=== PATIENT | male | born 1965 | race Caucasian/White ===

== ENCOUNTER 2022-05-13 10:01 | Observation (INO) ==
[2022-05-13] MEDS ORDERED: ACETAMINOPHEN 1,000 MG/100 ML VIAL IV STA (11:06)
[2022-05-13] MEDS ORDERED: ONDANSETRON INJ 2 MG/ML 2 ML VIAL IV STA (11:06)
[2022-05-13] MEDS ORDERED: fentaNYL citrate PF 100 MCG/2 ML VIAL IV PRN (11:06)
[2022-05-13] MEDS ORDERED: SODIUM CHLORIDE 0.9% 1000ML 1,000 ML IV SCH ×2 (11:15→15:45)
--- NOTE | 2022-05-13 11:31 | Emergency Department Note ---
Impression & Plan Abdominal pain, Abnormal CT scan, Renal mass, GERD (gastroesophageal reflux disease) ED Provider Note ED Provider Note NAME: MARTIN OGDEN AGE:56 SEX: Male : 1965 ARRIVES VIA: Private vehicle INFORMANT: Patient ED PROVIDER(s): Adrianna Rose DO CHIEF COMPLAINT: Abdominal pain HPI: This is a 56-year-old male presents emergency room due to concern for right upper quadrant abdominal pain. Patient states, pain began 2 days ago. He states it seems worse at night and worse with taking a deep breath. No radiati on into the flank or back. Patient has had prior colectomy and so has chronically loose stools/diarrhea. No change in stools noted recently. No change in urine. No recent change in medications or diet. He denies fevers or chills. States he has had some mild nausea but no overt vomiting. No prior history of peptic ulcer disease. PAST MEDICAL HISTORY:See Below PAST SURGICAL HISTORY:See Below FAMILY HISTORY:See Below SOCIAL HISTORY:See Below HOME MEDICATIONS:See Below ALLERGIES:See Below VITALS:See Below PHYSICAL EXAMINATION: GENERAL: alert, well appearing, well nourished, no distress, non-toxic EYE EXAM: normal conjunctiva, PERRL and EOM's grossly intact OROPHARYNX: no exudate, no erythema, lips, buccal mucosa, and tongue normal and mucous membranes are moist NECK: supple, no nuchal rigidity, no adenopathy, non-tender LUNGS: Clear to auscultation. Normal chest wall mechanics, no w/r/r HEART: no murmurs, S1 normal and S2 normal ABDOMEN: abdomen soft, non-tender, normo-active bowel sounds, no masses, no rebound or guarding. BACK: Back is symmetrical on inspection and there is no deformity, no midline tenderness, no CVA tenderness. SKIN: no rashes, petechiae, orbruising UPPER EXTREMITIES: upper extremities are grossly normal. FROM, nml pulses b/l. LOWER EXTREMITIES: No pitting edema. FROM, nml pulses b/l. NEURO EXAM: Normal sensorium, cranial nerves II-XII grossly intact, normal speech, no facial droop,nogross weakness of arms, no gross weakness of legs. Gross sensation intact. No ataxia. Vital Signs: reviewed and remarkable Differential Diagnosis: Differential diagnoses includes but is not limited to gastritis, peptic ulcer disease, GERD, gallbladder disease, pancreatitis, small bowel obstruction, acute coronary syndrome, pericarditis, ischemic bowel, irritable bowel disease, irritable bowel syndrome, appendicitis, diverticulitis, malignancy, hernia, urinary tract infection, perforation, infectious. MEDICAL DECISION MAKING: This is a 56-year-old male who presents with 2 days of right upper quadrant pain. Labs drawn and sent, IV established, and after discussion at bedside patient was sent for CT imaging. Patient does take chronic Dominguez 2 inhibitors, but does take daily Pepcid and Protonix additionally. No prior EGD despite history of GERD. Patient was afebrile and vital signs stable. CT revealed gastric ulcer versus mass with possible contained perforation. Patient also noted to have a small solid mass on the right kidney suggestive of malignancy. Patient and updated on all results at bedside. Case discussed with on-call GI, Dr. Avila and given patient had not had anything to eat since 6 AM, they were able to plan for urgent endoscopy this afternoon. Case discussed with hospitalist for additional evaluation and management. Patient started on Protonix drip, COVID swab obtained, and EKG performed and interpreted by me at bedside. Consultation(s): 1320: Discussed with Dr. Avila. Patient last had coffee at 6 AM, nothing to eat since. Dr. Avila requests admit to medicine and he will plan on taking the patient for endoscopy this afternoon. ER Treatment Provided: See below Diagnostics Interpreted By Me: -ECG: Normal sinus at 79, normal axis, normal intervals, no acute ST/T wave changes -Cardiac Monitoring: An order was placed for continuous cardiac monitoring. The monitor shows a rate of 70 with normal sinus rhythm. -Laboratory studies: As stated above and show below. -Imaging studies: [] Triage Nursing Note Reviewed Prior/Outside Records Reviewed Procedures: [] Critical Care: Critical care of 43 min performed to assess and manage high likelihood of life- threatening abdominal pain with possible perforation, involving labs and imaging performed with assessment to evaluate abdominal pain diagnosis with frequent reassessment. This time includes bedside time, treatment discussions with patient/family/consultants, documentation time and excludes procedure time. Past Med/Surg History Medical History Immunodeficiency disorder (11/23/11) Mixed hyperlipidemia (11/23/11) Rheumatoid arthritis Surgical History History of herniorrhaphy History of partial colectomy S/P left rotator cuff repair Social History Smoking Status: Former smoker Tobacco Type: Cigarettes Hx Alcohol Use: Yes Alcohol Intake Frequency: Monthly or Less Hx Substance Use: No Preferred Language: Yoruba Communication Ability: Effective Cloud Systems Architect Required: No Beliefs That Will Affect Care: None marital status: Current Living Situation: Spouse current occupational status: retired Feels Safe at Home: Yes Assistive Devices: None Allergies Allergies Allergy/AdvReac Type Severity Reaction Status Date / Time meloxicam Allergy Unknown RASH Verified 05/13/22 14:34 Home Meds Home Medications Medication Instructions Recorded Confirmed Acetaminophen (Tylenol) 500 mg PO PRN #0 tabs 11/23/11 05/13/22 CELECOXIB (CeleBREX) 200 mg PO BID #0 caps 11/23/11 05/13/22 CYCLOSPORINE (OPHTH) (RESTASIS) 1 drp OPB BID ##0 11/23/11 05/13/22 FAMOTIDINE (PEPCID) 20 mg PO DAILY PRN #0 tabs 11/23/11 05/13/22 Fish Oil (OMEGA-3) 1 cap PO BID ##0 11/23/11 05/13/22 Hydrocodone/Acetaminophen 1 tab PO DAILY PRN #0 tabs 11/23/11 05/13/22 7.5MG/500MG (Lortab 7.5MG/500MG) MULTIPLE VITAMIN (MULTIVITAMIN) 1 tab PO DAILY #0 tabs 11/23/11 05/13/22 Methylprednisolone (Medrol) 4 mg PO PRN/UD #0 tabs 11/23/11 05/13/22 Previous Rx's Medication Instructions Recorded PANTOPRAZOLE SODIUM (PROTONIX) 40 mg PO BID #30 tabs 05/13/22 Results & Data (ED) Vital Signs Vital Signs - 24 hr 05/13/22 10:14 05/13/22 11:21 05/13/22 12:39 Temperature 36.8 C Temperature Source Temporal Artery Scan Pulse Rate 86 Pulse Rate [Finger] 85 67 Respiratory Rate 20 18 18 Respiratory Effort / Characteristics Non-Labored Non-Labored Spontaneous Non-Labored Spontaneous Respiratory Depth Normal Normal Normal Blood Pressure 125/75 Blood Pressure [Right Arm] 124/77 130/73 Blood Pressure Mean 91 Blood Pressure Mean [Right Arm] 92 92 Pulse Oximetry 98 95 98 Oxygen Delivery Method Room Air Room Air Room Air Sepsis Recent Fever Within 48 Hours No Sepsis New/Unexplained Change in Mental Status N/A Sepsis Action Taken by Nursing No Action Required Laboratory Data 05/13/22 10:58 05/13/22 10:58 Lab Results 05/13/22 05/13/22 05/13/22 Range/Units 10:58 10:58 11:45 WBC 2.80 L (4.8-10.8) K/ul RBC 4.58 L (4.70-6.10) M/uL Hgb 14.1 (14.0-18.0) g/dl Hct 39.4 L (42.0-52.0) % MCV 86.0 (80.0-100.0) fL MCH 30.8 (25.0-34.0) pg MCHC 35.8 (32.0-36.0) g/dL RDW Std Deviation 38.6 (36.4-46.3) fL RDW Coeff of Bret 12.3 (11.5-14.5) % Plt Count 194 (130-400) K/uL MPV 10.8 (9.4-12.4) fL Immature Gran % (Auto) 7.1 % Neut % (Auto) 40.3 % Lymph % (Auto) 37.9 % [place] % (Auto) 14.3 % Eos % (Auto) 0.0 % Baso % (Auto) 0.4 % Neut # (Auto) 1.13 L (1.40-6.50) K/uL Lymph # (Auto) 1.06 L (1.2-3.4) K/uL [place] # (Auto) 0.40 (0.11-0.59) K/uL Eos # (Auto) 0.00 (0-0.50) K/uL Baso # (Auto) 0.01 (0-0.2) K/uL Immature Gran # (Auto) 0.20 (0.01-0.20) K/uL PT 11.1 (9.0-12.0) Seconds INR 1.0 (0.9-1.1) Sodium 139 (136-145) mmol/L Potassium 4.1 (3.5-5.1) mmol/L Chloride 104 (98-107) mmol/L Carbon Dioxide 26 (21-32) mmol/L Anion Gap 9 (3-11) BUN 19 (6-23) mg/dl Creatinine 1.05 (0.6-1.4) mg/dl Est Cr Clr Drug Dosing 76.7 ml/min Est GFR ( Amer) 90.3 ml/min Est GFR (Non-Af Amer) 77.9 ml/min BUN/Creatinine Ratio 18.1 (10-20) Glucose 95 (70-99(Fasting)) mg/dl Calcium 9.5 (8.5-10.1) mg/dl Total Bilirubin 0.6 (0.2-1.0) mg/dl AST 16 (13-39) U/L ALT 11 (7-52) U/L Alkaline Phosphatase 82 (34-104) U/L Total Protein 7.4 (6.0-8.3) gm/dl Albumin 5.1 H (3.4-5.0) gm/dl Globulin 2.3 L (2.5-4.0) gm/dl Albumin/Globulin Ratio 2.2 H (0.9-2) Lipase 18 (11-82) U/L Urine Color Urine Appearance (Clear) Urine pH (4.5-7.5) Ur Specific [place] (1.000-1.030) Urine Protein (Negative) Urine Glucose (UA) (Negative) Urine Ketones (Negative) Urine Blood (Negative) Urine Nitrite (Negative) Urine Bilirubin (Negative) Urine Urobilinogen (Negative) Ur Leukocyte Esterase (Negative) 05/13/22 Range/Units 12:38 WBC (4.8-10.8) K/ul RBC (4.70-6.10) M/uL Hgb (14.0-18.0) g/dl Hct (42.0-52.0) % MCV (80.0-100.0) fL MCH (25.0-34.0) pg MCHC (32.0-36.0) g/dL RDW Std Deviation (36.4-46.3) fL RDW Coeff of Bret (11.5-14.5) % Plt Count (130-400) K/uL MPV (9.4-12.4) fL Immature Gran % (Auto) % Neut % (Auto) % Lymph % (Auto) % [place] % (Auto) % Eos % (Auto) % Baso % (Auto) % Neut # (Auto) (1.40-6.50) K/uL Lymph # (Auto) (1.2-3.4) K/uL [place] # (Auto) (0.11-0.59) K/uL Eos # (Auto) (0-0.50) K/uL Baso # (Auto) (0-0.2) K/uL Immature Gran # (Auto) (0.01-0.20) K/uL PT (9.0-12.0) Seconds INR (0.9-1.1) Sodium (136-145) mmol/L Potassium (3.5-5.1) mmol/L Chloride (98-107) mmol/L Carbon Dioxide (21-32) mmol/L Anion Gap (3-11) BUN (6-23) mg/dl Creatinine (0.6-1.4) mg/dl Est Cr Clr Drug Dosing ml/min Est GFR ( Amer) ml/min Est GFR (Non-Af Amer) ml/min BUN/Creatinine Ratio (10-20) Glucose (70-99(Fasting)) mg/dl Calcium (8.5-10.1) mg/dl Total Bilirubin (0.2-1.0) mg/dl AST (13-39) U/L ALT (7-52) U/L Alkaline Phosphatase (34-104) U/L Total Protein (6.0-8.3) gm/dl Albumin (3.4-5.0) gm/dl Globulin (2.5-4.0) gm/dl Albumin/Globulin Ratio (0.9-2) Lipase (11-82) U/L Urine Color Yellow Urine Appearance Clear (Clear) Urine pH 5.5 (4.5-7.5) Ur Specific [place] 1.023 (1.000-1.030) Urine Protein Negative (Negative) Urine Glucose (UA) Negative (Negative) Urine Ketones Negative (Negative) Urine Blood Negative (Negative) Urine Nitrite Negative (Negative) Urine Bilirubin Negative (Negative) Urine Urobilinogen Negative (Negative) Ur Leukocyte Esterase Negative (Negative) Administered Medications Discontinued Medications Fentanyl Citrate (Fentanyl Citrate 100 Mcg/2 Ml Vial) 50 mcg IV Q15M PRN PRN Reason: Pain Stop: 05/27/22 11:05 Last Admin: 05/13/22 11:16 Dose: 50 mcg Documented By: SAAD Glycopyrrolate (Glycopyrrolate 0.2 Mg/Ml Vial) Confirm Administered Dose 0.4 mg .ROUTE .STK-MED ONE Stop: 05/13/22 15:01 Last Admin: 05/13/22 16:45 Dose: Not Given Documented By: AV Sodium Chloride (Nss 1000ml) 1,000 mls @ 125 mls/hr IV .Q8H ISRA[place] Stop: 06/12/22 11:14 Last Infusion: 05/13/22 16:45 Dose: 0 mls/hr Documented By: Admin: 05/13/22 11:18 Dose: 125 mls/hr Documented By: SAAD Acetaminophen (Ofirmev) 1,000 mg in 100 mls @ 400 mls/hr IV NOW STA Stop: 05/13/22 11:20 Last Infusion: 05/13/22 11:34 Dose: 0 mls/hr Documented By: Admin: 05/13/22 11:16 Dose: 400 mls/hr Documented By: NMS Pantoprazole Sodium 80 mg/ (Dextrose) 120 mls @ 400 mls/hr IV NOW ONE Stop: 05/13/22 13:36 Last Infusion: 05/13/22 14:19 Dose: 0 mls/hr Documented By: Admin: 05/13/22 14:00 Dose: 400 mls/hr Documented By: NMS Sodium Chloride (Nss 1000ml) 1,000 mls @ 15 mls/hr IV .Q24H [place] Stop: 05/14/22 15:44 Last Admin: 05/13/22 16:53 Dose: Not Given Documented By: AV Ioversol (Optiray 350 100ml) 87 ml IV ONCE ONE Stop: 05/13/22 12:24 Last Admin: 05/13/22 12:14 Dose: 87 ml Documented By: CELI Lidocaine HCl (Lidocaine 2% Mpf Local 5 Ml Vial) Confirm Administered Dose 5 ml INFIL .STK-MED ONE Stop: 05/13/22 15:01 Last Admin: 05/13/22 16:45 Dose: Not Given Documented By: AV Morphine Sulfate (Morphine Sulfate 2 Mg/Ml [place]) 2 mg IV Q3H PRN PRN Reason: Pain 4-6 Stop: 05/27/22 16:40 Last Admin: 05/13/22 17:29 Dose: 2 mg Documented By: AV Ondansetron HCl (Ondansetron Inj 2 Mg/Ml 2 Ml Vial) 4 mg IV NOW STA Stop: 05/13/22 11:07 Last Admin: 05/13/22 11:16 Dose: 4 mg Documented By: NMS Ondansetron HCl (Ondansetron Inj 2 Mg/Ml 2 Ml Vial) Confirm Administered Dose 4 mg .ROUTE .STK-MED ONE Stop: 05/13/22 15:01 Last Admin: 05/13/22 16:44 Dose: Not Given Documented By: AV Propofol (Propofol Iv Emulsion 10 Mg/Ml 20 Ml Vial) Confirm Administered Dose 200 mg IV .STK-MED ONE Stop: 05/13/22 15:01 Last Admin: 05/13/22 16:44 Dose: Not Given Documented By: AV Propofol (Propofol Iv Emulsion 10 Mg/Ml 20 Ml Vial) Confirm Administered Dose 200 mg IV .STK-MED ONE Stop: 05/13/22 15:53 Last Admin: 05/13/22 16:45 Dose: Not Given Documented By: AV Imaging Data Radiologist's Impression: Abdomen/Pelvis CT 05/13/22 11:[address] WITH IV CONTRAST CT DOSE: 327.51 mGy.cm HISTORY: RUQ pain, nausea TECHNIQUE: Multiaxial CT images of the abdomen and pelvis were performed following the use of intravenous contrast. A dose lowering technique was utilized adhering to the principles of ALARA. COMPARISON STUDY: Abdomen and pelvis CT 08/05/2014. FINDINGS: A few punctate calcified granulomas within the lung bases. No pneumoperitoneum. No pneumatosis. No fractures identified. A stable 1.6 cm hypodense lesion within the periphery the right hepatic lobe. This is indeterminate but favors a hemangioma given the long-term stability. The spleen is mildly enlarged measuring 14 cm in length. This is similar to the prior study. Normal adrenal glands and pancreas. There is a 3.6 cm cyst within the upper pole of the left kidney. There are few additional bilateral renal hypodense lesions which are difficult to characterize due to their small size but also favors cysts. There is a new 1 cm lesion within the right kidney on image 166 which does not represent a simple cyst and could represent a solid renal mass. No hydronephrosis. No retroperitoneal lymphadenopathy. Mild calcified plaque within the normal caliber no pelvic lymphadenopathy. The bladder is unremarkable. The prostate gland is mildly enlarged. No evidence for a bowel obstruction. A few colonic diverticula. No evidence for acute diverticulitis. Postoperative changes consistent with prior right hemicolectomy. Diffuse gastric wall thickening. There is inflammatory change with soft tissue density/phlegmon within the gastrohepatic region abutting the lesser curvature of the stomach. This is best seen on images 81 through 83. Dominant extraluminal phlegmon/soft tissue density in image 83 measures 2.9 cm. This could be due to a contained perforation in the setting of a gastric ulcer and/or a gastric mass. Follow-up endoscopy recommended for further evaluation. Tiny fat-containing umbilical hernia. IMPRESSION: 1. Diffuse gastric wall thickening. There is inflammatory change with soft ti ssue density/phlegmon within the gastrohepatic region abutting the lesser curvature of the stomach as described above. This could be due to a contained perforation in the setting of a gastric ulcer and/or a gastric mass. Follow-up endoscopy recommended for further evaluation. 2. There is a new 1 cm lesion within the right kidney which is concerning for solid renal mass. Follow-up nonemergent dedicated renal MRI recommended to evaluate for possible renal cell carcinoma. ACT 112: Positive. There are findings on this exam that require communication between the performing entity and the patient following Patient Test Result Information Act ([place] Act 112) guidelines. Electronically signed by: Shan Sanchez M.D. 05/13/2022 12:34 PM Discharge Plan Visit Data Chief Complaint: Abdominal Pain Stated Complaint: GALLBLADDER ISSUE,ABDOMINAL PAIN ED Provider: Adrianna Rose Discharge Problem: Abdominal pain, Abnormal CT scan, Renal mass, GERD (gastroesophageal reflux disease) Patient Disposition: Admitted As Inpatient Discharge Instructions Interventions: ED Discharge Assessment Last Done: 05/13/22 14:59
[2022-05-13 11:52] LABS: Hematocrit (blood only) 39.4 % (42.0-52.0); Hemoglobin 14.1 g/dl (14.0-18.0); Mean Corpuscular Hemoglobin 30.8 pg (25.0-34.0); Mean Corpuscular Hgb Conc 35.8 g/dL (32.0-36.0); Mean Platelet Volume 10.8 fL (9.4-12.4); Platelet Count 194 K/uL (130-400); RDW Coefficient of Variation 12.3 % (11.5-14.5); RDW Standard Deviation 38.6 fL (36.4-46.3); Red Blood Count 4.58 M/uL (4.70-6.10)
[2022-05-13 11:56] LABS: Albumin Globulin Ratio 2.2 (0.9-2); Albumin Level 5.1 gm/dl (3.4-5.0); BUN Creatinine Ratio 18.1 (10-20); Bilirubin,Total 0.6 mg/dl (0.2-1.0); Calcium 9.5 mg/dl (8.5-10.1); Creatinine Clr Calc Pharmacy 76.7 ml/min; Est GFR (African American) 90.3 ml/min; Est GFR (Non-African American) 77.9 ml/min; Globulin 2.3 gm/dl (2.5-4.0); Potassium 4.1 mmol/L (3.5-5.1); Total Protein 7.4 gm/dl (6.0-8.3)
[2022-05-13] MEDS ORDERED: OPTIRAY 350 100ml IV ONE (12:23)
[2022-05-13 12:29] LABS: Basophils # (auto) 0.01 K/uL (0-0.2); Basophils % (auto) 0.4 %; Immature Granulocytes % (auto) 7.1 %; Lymphocytes # (auto) 1.06 K/uL (1.2-3.4); Lymphocytes % (auto) 37.9 %; Monocytes % (auto) 14.3 %; Neutrophils # (auto) 1.13 K/uL (1.40-6.50); Neutrophils % (auto) 40.3 %
--- NOTE | 2022-05-13 12:36 | CT Scan Report ---
ABDOMEN AND PELVIS CT WITH IV CONTRAST CT DOSE: 327.51 mGy.cm HISTORY: RUQ pain, nausea TECHNIQUE: Multiaxial CT images of the abdomen and pelvis were performed following the use of intrave nous contrast. A dose lowering technique was utilized adhering to the principles of ALARA. COMPARISON STUDY: Abdomen and pelvis CT 08/05/2014. FINDINGS: A few punctate calcified granulomas within the lung bases. No pneumoperitoneum. No pneumato sis. No fractures identified. A stable 1.6 cm hypodense lesion within the periphery the right hepatic lobe. This is indeterminate but favors a hemangioma given the long-term stability. The spleen is mil dly enlarged measuring 14 cm in length. This is similar to the prior study. Normal adrenal glands and pancreas. There is a 3.6 cm cyst within the upper pole of the left kidney. There are few additional bilateral renal hypodense lesions which are difficult to characterize due to their small size but als o favors cysts. There is a new 1 cm lesion within the right kidney on image 166 which does not repres ent a simple cyst and could represent a solid renal mass. No hydronephrosis. No retroperitoneal lymph adenopathy. Mild calcified plaque within the normal caliber no pelvic lymphadenopathy. The bladder is unremarkable. The prostate gland is mildly enlarged. No evidence for a bowel obstruction. A few colo gerald diverticula. No evidence for acute diverticulitis. Postoperative changes consistent with prior ri ght hemicolectomy. Diffuse gastric wall thickening. There is inflammatory change with soft tissue den sity/phlegmon within the gastrohepatic region abutting the lesser curvature of the stomach. This is b est seen on images 81 through 83. Dominant extraluminal phlegmon/soft tissue density in image 83 kenny ures 2.9 cm. This could be due to a contained perforation in the setting of a gastric ulcer and/or a gastric mass. Follow-up endoscopy recommended for further evaluation. Tiny fat-containing umbilical h ernia. IMPRESSION: 1. Diffuse gastric wall thickening. There is inflammatory change with soft tissue density/phlegmon wi thin the gastrohepatic region abutting the lesser curvature of the stomach as described above. This c ould be due to a contained perforation in the setting of a gastric ulcer and/or a gastric mass. Follo w-up endoscopy recommended for further evaluation. 2. There is a new 1 cm lesion within the right kidney which is concerning for solid renal mass. Follo w-up nonemergent dedicated renal MRI recommended to evaluate for possible renal cell carcinoma. ACT 112: Positive. There are findings on this exam that require communication between the performing entity and the patient following Patient Test Result Information Act ([place] Act 112) guidelines. Electronically signed by: Shan Sanchez M.D. 05/13/2022 12:34 PM
[2022-05-13 12:48] LABS: Prothrombin Time 11.1 Seconds (9.0-12.0)
[2022-05-13 13:00] LABS: Appearance Urine Clear (Clear); Bilirubin Urine Negative (Negative); Blood Urine Negative (Negative); Color Urine Yellow; Glucose Urine UA Negative (Negative); Ketones Urine Negative (Negative); Leukocyte Esterase Urine Negative (Negative); Nitrite Urine Negative (Negative); Protein Urine Negative (Negative); Specific Gravity Urine 1.023 (1.000-1.030); Urobilinogen Urine Negative (Negative); pH Urine 5.5 (4.5-7.5)
[2022-05-13] MEDS ORDERED: PANTOPRAZOLE BOLUS/DRIP 1 EACH IV STA (13:19)
[2022-05-13] MEDS ORDERED: PANTOprazole 80 MG in DEXTROSE 5% 100 ML IV ONE (13:19)
[2022-05-13] MEDS ORDERED: PANTOprazole 40 MG in DEXTROSE 5% 100 ML IV SCH (13:45)
--- NOTE | 2022-05-13 14:22 | History & Physical Report ---
Date of Service May 13, 2022 Assessment & Plan (1) Abdominal pain: Plan: 56 yo male with abdominal pain who has abnormal CT findings with gastric wall thickening c/f contained perforation d/t gastric ulcer and/or mass - Full admit to med/surg - Dr. Avila on consult for planned endoscopy today (05/13) - Maintain NPO status - Continue PPI drip as ordered by ED, but can likely be converted to Protonix 40mg IV BID vs PO tomorrow at rounding provider's discretion - Pain control will be implemented with IV APAP 1g q8h prn as first line, followed by Morphine 2mg IV q3h for mod pain, and 4mg IV q3h prn severe pain - If needs surgical intervention, would prefer to defer to Dr. Comer (pt's PCP's) recommendation - Continue IV antiemetics (2) Renal mass: Plan: Acute - Incidentally found on today's CT A/P - Will order dedicated renal MRI for further characterization given concern for solid renal mass - Plan to obtain this during this hospitalization to facilitate appropriate follow up - This can be completed tomorrow after he undergoes endoscopy (3) Immunodeficiency disorder: Plan: - In setting of chronic steroid + biologic use for RA - CBC reviewed, leukopenic, marginally neutropenic, will trend with repeat CBC in AM (4) GERD (gastroesophageal reflux disease): Plan: - Chronic/stable - On Protonix and Pepcid at home - Hold Pepcid, will be placed on PPI gtt (5) Rheumatoid arthritis: Plan: - Hold Celebrex, steroids, and Rinvoq (of which he takes on Fridays-so would be due today) Plan CMP also reviewed. No overt abnormalities appreciated. Follow up labs have been ordered for tomorrow morning. Above plan of care has been d/w Dr. Langley who has also seen and evaluated this patient and agrees with aforementioned. Further orders will be implemented as warranted. History of Present Illness Chief Complaint: Abdominal pain Primary Care Provider: DO Dr. 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 He reports pain worse at night and with taking in deep breaths. He chronically takes Celebrex 200mg TID and Medrol 4mg q3 days for his RA pain. He is also managed with a biologic (Rinvoq). He has had vague intermittent reflux symptoms in the past but has never had an EGD. He has had multiple colonoscopies in the past and has a prior h/o R hemicolectomy due to complex polyp that could not be removed via endoscopy. Due to his h/o colectomy, he has chronic loose stools. He admits to nausea associated with his symptoms but no vomiting. Work up in the ER today included a CT a/p with IV contrast which demonstrated diffuse gastric wall thickening with inflammatory change with soft tissue/phlegmon within the gastrohepatic region abutting the lesser curvature of the stomach. Findings could be due to contained perforation in the setting of a gastric ulcer and/or gastric mass for which endoscopy is recommende d for further evaluation. Incidentally, patient was found to also have a 1cm lesion within the right kidney which is concerning for solid renal mass. Patient was medicated with a dose of IV Zofran and IV APAP. He has been started on an IV Protonix drip and Dr. Avila from gastroenterology was promptly notified regarding CT findings. Patient is for endoscopy this afternoon. His last oral intake was ~6am. Hospitalists have been contacted for admission for further evaluation and treatment. Allergies Allergy/AdvReac Type Severity Reaction Status Date / Time meloxicam Allergy Unknown RASH Verified 05/13/22 14:34 Home Medications Medication Instructions Recorded Confirmed Type Acetaminophen (Tylenol) 500 mg PO PRN #0 tabs 11/23/11 05/13/22 History CELECOXIB (CeleBREX) 200 mg PO BID #0 caps 11/23/11 05/13/22 History CYCLOSPORINE (OPHTH) (RESTASIS) 1 drp OPB BID ##0 11/23/11 05/13/22 History FAMOTIDINE (PEPCID) 20 mg PO DAILY PRN #0 tabs 11/23/11 05/13/22 History Fish Oil (OMEGA-3) 1 cap PO BID ##0 11/23/11 05/13/22 History Hydrocodone/Acetaminophen 1 tab PO DAILY PRN #0 tabs 11/23/11 05/13/22 History 7.5MG/500MG (Lortab 7.5MG/500MG) MULTIPLE VITAMIN (MULTIVITAMIN) 1 tab PO DAILY #0 tabs 11/23/11 05/13/22 History Methylprednisolone (Medrol) 4 mg PO PRN/UD #0 tabs 11/23/11 05/13/22 History PANTOPRAZOLE SODIUM (PROTONIX) 40 mg PO DAILY #30 tabs 11/23/11 05/13/22 History Past Med/Surg History Medical History (Updated 05/13/22 @ 14:12 by Tiffanie Woods PA-C) Immunodeficiency disorder (11/23/11) Mixed hyperlipidemia (11/23/11) Rheumatoid arthritis Surgical History (Updated 05/13/22 @ 14:12 by Tiffanie Woods PA-C) History of herniorrhaphy History of partial colectomy S/P left rotator cuff repair Social History (Updated 05/13/22 @ 14:13 by Tiffanie Woods PA-C) Smoking Status: Former smoker Tobacco Type: Cigarettes Hx Alcohol Use: Yes Alcohol Intake Frequency: Monthly or Less Hx Substance Use: No marital status: current occupational status: retired Feels Safe at Home: Yes Physical Exam Physical Exam: GENERAL: 56 yo Well-developed, well-nourished WM. Pleasant, A&Ox4. NAD. LUNGS: Clear to auscultation bilaterally. CARDIOVASCULAR: Regular rate and rhythm. No M/G/R. ABDOMEN: Soft, TTP in RUQ. No palpable masses. Bowel sounds normoactive x 4 quad. Results & Data Results & Data Vital Signs (Past 12 Hours) Vital Signs Temp Pulse Pulse Resp BP BP Pulse Ox 05/13/22 12:39 67 18 130/73 98 05/13/22 11:21 85 18 124/77 95 05/13/22 10:14 36.8 C 86 20 125/75 98 O2 Del Method 05/13/22 12:39 Room Air 05/13/22 11:21 Room Air 05/13/22 10:14 Room Air Laboratory Results 05/13/22 10:58 05/13/22 10:58 Diagnostic Findings Abdomen/Pelvis CT 05/13/22 11:[address] WITH IV CONTRAST CT DOSE: 327.51 mGy.cm HISTORY: RUQ pain, nausea TECHNIQUE: Multiaxial CT images of the abdomen and pelvis were performed following the use of intravenous contrast. A dose lowering technique was utilized adhering to the principles of ALARA. COMPARISON STUDY: Abdomen and pelvis CT 08/05/2014. FINDINGS: A few punctate calcified granulomas within the lung bases. No pneumoperitoneum. No pneumatosis. No fractures identified. A stable 1.6 cm h ypodense lesion within the periphery the right hepatic lobe. This is indeterminate but favors a hemangioma given the long-term stability. The spleen is mildly enlarged measuring 14 cm in length. This is similar to the prior study. Normal adrenal glands and pancreas. There is a 3.6 cm cyst within the upper pole of the left kidney. There are few additional bilateral renal hypodense lesions which are difficult to characterize due to their small size but also favors cysts. There is a new 1 cm lesion within the right kidney on image 166 which does not represent a simple cyst and could represent a solid renal mass. No hydronephrosis. No retroperitoneal lymphadenopathy. Mild calcified plaque within the normal caliber no pelvic lymphadenopathy. The bladder is unremarkable. The prostate gland is mildly enlarged. No evidence for a bowel obstruction. A few colonic diverticula. No evidence for acute diverticulitis. Postoperative changes consistent with prior right hemicolectomy. Diffuse gastric wall thickening. There is inflammatory change with soft tissue density/phlegmon within the gastrohepatic region abutting the lesser curvature of the stomach. This is best seen on images 81 through 83. Dominant extraluminal phlegmon/soft tissue density in image 83 measures 2.9 cm. This could be due to a contained perforation in the setting of a gastric ulcer and/or a gastric mass. Follow-up endoscopy recommended for further evaluation. Tiny fat-containing umbilical hernia. IMPRESSION: 1. Diffuse gastric wall thickening. There is inflammatory change with soft tissue density/phlegmon within the gastrohepatic region abutting the lesser curvature of the stomach as described above. This could be due to a contained perforation in the setting of a gastric ulcer and/or a gastric mass. Follow-up endoscopy recommended for further evaluation. 2. There is a new 1 cm lesion within the right kidney which is concerning for solid renal mass. Follow-up nonemergent dedicated renal MRI recommended to evaluate for possible renal cell carcinoma. ACT 112: Positive. There are findings on this exam that require communication between the performing entity and the patient following Patient Test Result Information Act ([place] Act 112) guidelines. Electronically signed by: Shan Sanchez M.D. 05/13/2022 12:34 PM Code Status & VTE Plan Code Status Full Supervising Physician Co-Signing Physician Notes Patient seen and examined, chart reviewed, case discussed with Tiffanie Woods PA-C and I agree with the assessment and plan as above except as otherwise noted Labs and images reviewed 56-year-old male who presented for right upper quadrant pain of 2 days worsened with inspiration. Has a history of partial colectomy for complicated removal of a polyp, rheumatoid arthritis on Rinvoq, methylprednisolone every 3 days and as needed, and Celebrex up to 3 times a day. No melena/hematochezia. Patient has radiation of his pain to his right shoulder and was initially concerned about gallbladder involvement. Has not had endoscopy before. On review of labs Leukopenia with absolute neutrophil count 1.13, leukocyte count 1.06. Hemoglobin normal at 14.1, platelets 194. Abdominal CT shows diffuse gastric wall thickening and inflammatory change? Contained perforation in the setting of gastric ulcer versus gastric mass. GI consulted, anticipate endoscopy with Dr. Avila today. NPO. Hemoglobin stable, no active bleeding. Patient is with epigastric discomfort. CT also noted 1 cm right kidney lesion. Patient continues to have epigastric pain, heart rate is regular, breathing is unlabored at bedside. Patient is taken to endoscopy, with surgical consultation pending if he is found to have a perforated ulcer. Patient prefers to have surgical recommendation made by his PCP Dr. Quintana to which a message has been sent. No evidence of free air on initial exam, patient does not have fever/chills. Patient has no medication allergies. Agree with recommendations of management as above PG Care Time/CCT Total # of Minutes Spent Total Time Spent with Patient: Total time spent is greater than 50% in coordination of care (as documented) at patient's floor/unit and/or counseling patient: Coding Level of Care Code 75521 INT INP/OBS CARE 3/75MIN Diagnoses Abdominal pain R10.9 Renal mass N28.89 Immunodeficiency disorder D84.9 GERD (gastroesophageal reflux disease) K21.9 Rheumatoid arthritis M06.9
--- NOTE | 2022-05-13 14:54 | Anesthesiology Consultation ---
Date of Service May 13, 2022 Assessment & Plan Chart Review Chart Review: Acceptable Risk for Surgery Consults Requested none History Surgery Operation Date: 05/13/22 16:00 Proposed Procedures p Esophagogastroduodenoscopy Dr. Austin Avila MD Height/Weight Height: 5 ft 9 in Weight: 74.3 kg Allergies Allergy/AdvReac Type Severity Reaction Status Date / Time meloxicam Allergy Unknown RASH Verified 05/13/22 14:34 Medications Home Medications Medication Instructions Recorded Confirmed Last Taken Acetaminophen (Tylenol) 500 mg PO PRN #0 tabs 11/23/11 05/13/22 Unknown CELECOXIB (CeleBREX) 200 mg PO BID #0 caps 11/23/11 05/13/22 05/12/22 CYCLOSPORINE (OPHTH) (RESTASIS) 1 drp OPB BID ##0 11/23/11 05/13/22 05/12/22 FAMOTIDINE (PEPCID) 20 mg PO DAILY PRN #0 tabs 11/23/11 05/13/22 05/12/22 Fish Oil (OMEGA-3) 1 cap PO BID ##0 11/23/11 05/13/22 05/12/22 Hydrocodone/Acetaminophen 1 tab PO DAILY PRN #0 tabs 11/23/11 05/13/22 05/12/22 7.5MG/500MG (Lortab 7.5MG/500MG) MULTIPLE VITAMIN (MULTIVITAMIN) 1 tab PO DAILY #0 tabs 11/23/11 05/13/22 05/12/22 Methylprednisolone (Medrol) 4 mg PO PRN/UD #0 tabs 11/23/11 05/13/22 Unknown PANTOPRAZOLE SODIUM (PROTONIX) 40 mg PO DAILY #30 tabs 11/23/11 05/13/22 05/13/22 06:00 Active Medications Generic Name Dose Route Start Last Admin Trade Name Freq PRN Reason Stop Dose Admin Fentanyl Citrate 50 mcg 05/13/22 11:06 05/13/22 11:16 Fentanyl Citrate 100 Mcg/2 Ml Vial IV 05/27/22 11:05 50 mcg Q15M PRN Administration Pain Sodium Chloride 1,000 mls @ 125 mls/hr 05/13/22 11:15 05/13/22 11:18 Nss 1000ml IV 06/12/22 11:14 125 mls/hr .Q8H [place] Administration NPO Date Last Intake of Fluids: 05/13/22 Time Last Intake of Fluids: 06:00 Date Last Intake of Solids: 05/12/22 Time Last Intake of Solids: 21:00 Past Medical History Medical History (Updated 05/13/22 @ 14:12 by Tiffanie Woods PA-C) Immunodeficiency disorder (11/23/11) Mixed hyperlipidemia (11/23/11) Rheumatoid arthritis Past Surgical History Surgical History (Updated 05/13/22 @ 14:12 by Tiffanie Woods PA-C) History of herniorrhaphy History of partial colectomy S/P left rotator cuff repair Social History Smoking Status: Former smoker Hx Alcohol Use: Yes Hx Substance Use: No Physical Exam Vital Signs Last Vital Signs Temp 36.7 C 05/13/22 14:38 Pulse 79 05/13/22 14:38 Resp 16 05/13/22 14:38 BP 127/79 05/13/22 14:38 Pulse Ox 99 05/13/22 14:38 O2 Del Method Room Air 05/13/22 14:38 Testing Laboratory Results 05/13/22 10:58 05/13/22 10:58 PT 11.1 Seconds (9.0-12.0) 05/13/22 11:45 INR 1.0 (0.9-1.1) 05/13/22 11:45 Urine Color Yellow 05/13/22 12:38 Urine Appearance Clear (Clear) 05/13/22 12:38 Urine pH 5.5 (4.5-7.5) 05/13/22 12:38 Ur Specific [place] 1.023 (1.000-1.030) 05/13/22 12:38 Urine Protein Negative (Negative) 05/13/22 12:38 Urine Glucose (UA) Negative (Negative) 05/13/22 12:38 Urine Ketones Negative (Negative) 05/13/22 12:38 Urine Nitrite Negative (Negative) 05/13/22 12:38 Ur Leukocyte Esterase Negative (Negative) 05/13/22 12:38
[2022-05-13] MEDS ORDERED: PROPOFOL IV EMULSION 10 MG/ML 20 ML VIAL IV ONE ×2 (15:00→15:52)
[2022-05-13] MEDS ORDERED: LIDOCAINE 2% MPF LOCAL 5 ML VIAL INFIL ONE (15:00)
[2022-05-13] MEDS ORDERED: ONDANSETRON INJ 2 MG/ML 2 ML VIAL ONE (15:00)
[2022-05-13] MEDS ORDERED: GLYCOPYRROLATE 0.2 MG/ML VIAL ONE (15:00)
--- NOTE | 2022-05-13 15:41 | Gastrointestinal Consultation ---
Date of Consultation May 13, 2022 Assessment & Plan (1) Abdominal pain: (2) Abnormal CT scan: Plan ddx includes PUD vs malignancy vs. severe gastritis, proceed with EGD to further evaluate risks/benefits and procedure discussed with patient, who agrees to proceed supportive care, protonix drip, admit to medicine, NPO Thank you for allowing me to participate in the care of this patient. History of Present Illness History of Present Illness 56 yo male with hx colectomy here with RUQ pains x 2 days. Pain is sharp worse with inspiration. On celebrex chronically for years as well as protonix and pep kurtis daily. Has hx leukemia as well. On admission VSS afebrile. However imaging shows questionable area in stomach concerning for possible contained perforation or neoplasm and endoscopy was advised. CBC, CMP reviewed. Allergies Allergy/AdvReac Type Severity Reaction Status Date / Time meloxicam Allergy Unknown RASH Verified 05/13/22 14:34 Home Medications Medication Instructions Recorded Confirmed Type Acetaminophen (Tylenol) 500 mg PO PRN #0 tabs 11/23/11 05/13/22 History CELECOXIB (CeleBREX) 200 mg PO BID #0 caps 11/23/11 05/13/22 History CYCLOSPORINE (OPHTH) (RESTASIS) 1 drp OPB BID ##0 11/23/11 05/13/22 History FAMOTIDINE (PEPCID) 20 mg PO DAILY PRN #0 tabs 11/23/11 05/13/22 History Fish Oil (OMEGA-3) 1 cap PO BID ##0 11/23/11 05/13/22 History Hydrocodone/Acetaminophen 1 tab PO DAILY PRN #0 tabs 11/23/11 05/13/22 History 7.5MG/500MG (Lortab 7.5MG/500MG) MULTIPLE VITAMIN (MULTIVITAMIN) 1 tab PO DAILY #0 tabs 11/23/11 05/13/22 History Methylprednisolone (Medrol) 4 mg PO PRN/UD #0 tabs 11/23/11 05/13/22 History PANTOPRAZOLE SODIUM (PROTONIX) 40 mg PO DAILY #30 tabs 11/23/11 05/13/22 History Patient History Medical History Immunodeficiency disorder (11/23/11) Mixed hyperlipidemia (11/23/11) Rheumatoid arthritis Surgical History History of herniorrhaphy History of partial colectomy S/P left rotator cuff repair Social History Smoking Status: Former smoker Tobacco Type: Cigarettes Hx Alcohol Use: Yes Alcohol Intake Frequency: Monthly or Less Hx Substance Use: No marital status: current occupational status: retired Feels Safe at Home: Yes Review of Systems Constitutional: no fever, no chills and no weight loss Eyes: as per Subjective / HPI Ear, Nose, Mouth, Throat: as per Subjective / HPI Respiratory: no dyspnea and no dyspnea on exertion Cardiovascular: no chest pain and no palpitations Gastrointestinal: as per Subjective / HPI Musculoskeletal: no joint pain and no swelling Integumentary: no rash and no lesions Neurologic: no numbness and no paresthesia Psychiatric: no depression and no anxiety Endocrine: no fatigue Hematologic / Lymphatic: no easy bleeding and no easy bruising Physical Exam Constitutional: WD/WN, vitals as above Eyes: EOM intact bilaterally Neck: normal visual inspection Respiratory: normal respiratory effort, lungs clear to auscultation Cardiovascular: RRR, no murmur, no edema Gastrointestinal (Abdomen): Inspection/Auscultation: abdomen normal to inspection; abdomen not distended Percussion/Palpation: abdomen soft; abdomen nontender and no hepatosplenomegaly Musculoskeletal: Extremities: no cyanosis Gait: normal gait Skin: no rashes, warm and dry Neurologic: moves all extremities Psychiatric: A+Ox3, euthymic affect Results & Data Vital Signs (Past 12 Hours) Vital Signs Temp Pulse Pulse Resp BP BP Pulse Ox 05/13/22 14:38 36.7 C 79 16 127/79 99 05/13/22 12:39 67 18 130/73 98 05/13/22 11:21 85 18 124/77 95 05/13/22 10:14 36.8 C 86 20 125/75 98 O2 Del Method 05/13/22 14:38 Room Air 05/13/22 12:39 Room Air 05/13/22 11:21 Room Air 05/13/22 10:14 Room Air PG Care Time/CCT Total # of Minutes Spent Total Time Spent with Patient: Total time spent is greater than 50% in coordination of care (as documented) at patient's floor/unit and/or counseling patient: Coding Level of Care Code 74393 IN/OBS CONSULT LVL 4,60M Diagnoses Abdominal pain R10.[address] scan R93.89
--- NOTE | 2022-05-13 16:00 | GI REPORT ---
Patient Name: Daryl Fraire Procedure Date: 05/13/2022 2:30 PM Date of : 1965 Admit Type: Emergency Department Age: 56 Gender: Male Attending MD: Stuart Avila MD, Procedure: Upper GI endoscopy Providers: Stuart Avila MD Referring MD: Adrianna Rose Do Indications: Abdominal pain in the right upper quadrant Medicines: Monitored Anesthesia Care Complications: No immediate complications. Estimated blood loss: None. Estimated Blood Loss: Estimated blood loss: none. Procedure: Pre-Anesthesia Assessment: - Prior Anticoagulants: The patient has taken no anticoagulant or antiplatelet agents except for NSAID medication. - ASA Grade Assessment: II - A patient with mild systemic disease. After obtaining informed consent, the endoscope was passed under direct vision. Throughout the procedure, the patient's blood pressure, pulse, and oxygen saturations were monitored continuously. The Endoscope was introduced through the mouth, and advanced to the second part of duodenum. The upper GI endoscopy was accomplished without difficulty. The patient tolerated the procedure well. Findings: The examined esophagus was normal. Scattered mild inflammation characterized by erythema was found in the stomach. Biopsies were taken with a cold forceps for Helicobacter pylori testing. Estimated blood loss: none. A single large sessile polyp with no bleeding was found in the second portion of the duodenum. Biopsies were taken with a cold forceps for histology. Estimated blood loss: none. Impression: - Normal esophagus. - Gastritis. Biopsied. - A single duodenal polyp. Biopsied. Recommendation: - Return patient to [facility] for ongoing care. - Clear liquid diet today then advance as tolerated tomorrow. - Await pathology results. -protonix 40 mg daily Stuart Avila MD 05/13/2022 4:00:09 PM This report has been signed electronically. Note Initiated On: 05/13/2022 2:30 PM Number of Addenda: 0 I attest to the content of the Intraoperative Record and orders documented therein, exceptions below {[id number]}
--- NOTE | 2022-05-13 16:12 | Anesthesiology Progress Note ---
Date of Service May 13, 2022 Anesthesia Post Procedure Vital Signs Vital Signs: Temp Pulse Pulse Resp BP BP Pulse Ox 05/13/22 15:56 69 16 97/60 L 99 05/13/22 14:38 36.7 C 79 16 127/79 99 05/13/22 12:39 67 18 130/73 98 05/13/22 11:21 85 18 124/77 95 05/13/22 10:14 36.8 C 86 20 125/75 98 O2 Del Method 05/13/22 15:56 Room Air 05/13/22 14:38 Room Air 05/13/22 12:39 Room Air 05/13/22 11:21 Room Air 05/13/22 10:14 Room Air Pain Intensity Right Upper Abdomen: Pain Intensity: 8 Transfer of Care Handoff Completed per policy Notes Mental Status: alert / awake / arousable and participated in evaluation Patient Amnestic to Procedure: Yes Nausea / Vomiting: adequately controlled Pain: adequately controlled Airway Patency, RR, SpO2: stable & adequate BP & HR: stable & adequate Hydration State: stable & adequate Anesthetic Complications: no major complications apparent
[2022-05-13] MEDS ORDERED: MoRPHine SULFATE 4 MG/ML 1 ML CARP\\VIAL IV PRN (16:41)
[2022-05-13] MEDS ORDERED: POLYETHYLENE (MIRALAX) 17 GM PACK PO PRN (16:41)
[2022-05-13] MEDS ORDERED: MAGNESIUM HYDROXIDE SUSP 30 ML UDC PO PRN (16:41)
[2022-05-13] MEDS ORDERED: ACETAMINOPHEN 1,000 MG/100 ML VIAL IV PRN (16:41)
[2022-05-13] MEDS ORDERED: ALUMINUM/MAGNESIUM SUSP 30 ML UDC PO PRN (16:41)
[2022-05-13] MEDS ORDERED: ONDANSETRON INJ 2 MG/ML 2 ML VIAL IV PRN (16:41)
[2022-05-13] MEDS ORDERED: MoRPHine SULFATE 2 MG/ML CARP IV PRN (16:41)
--- NOTE | 2022-05-13 17:23 | Communication Note ---
Date of Service: May 13, 2022 By CMS guidelines, a determination that the admission or continued stay is not medically necessary has been made by a member of the UR committee and a physi joann for this hospital stay, therefore a Code 44 will be completed and the Inpatient admission will be changed to outpatient.
--- NOTE | 2022-05-13 17:35 | Discharge Summary ---
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 He reports pain worse at night and with taking in deep breaths. He chronically takes Celebrex 200mg TID and Medrol 4mg q3 days for his RA pain. He is also managed with a biologic (Rinvoq). He has had vague intermittent reflux symptoms in the past but has never had an EGD. He has had multiple colonoscopies in the past and has a prior h/o R hemicolectomy due to complex polyp that could not be removed via endoscopy. Due to his h/o colectomy, he has chronic loose stools. He admits to nausea associated with his symptoms but no vomiting. Work up in the ER today included a CT a/p with IV contrast which demonstrated diffuse gastric wall thickening with inflammatory change with soft tissue/phlegmon within the gastrohepatic region abutting the lesser curvature of the stomach. Findings could be due to contained perforation in the setting of a gastric ulcer and/or gastric mass for which endoscopy is recommended for further evaluation. Incidentally, patient was found to also have a 1cm lesion within the right kidney which is concerning for solid renal mass. Patient was medicated with a dose of IV Zofran and IV APAP. He has been started on an IV Protonix drip and Dr. Avila from gastroenterology was promptly notified regarding CT findings. Patient is for endoscopy this afternoon. His last oral intake was ~6am. Hospitalists have been contacted for admission for further evaluation and treatment. Principal Diagnosis 1. RUQ Abd pain s/p EGD with findings of duodenal polyp - suspect malignant 2. Incidental finding of R renal lesion Discharge Exam GENERAL: 56 yo Well-developed, well-nourished WM. Pleasant, A&Ox4. NAD. LUNGS: Clear to auscultation bilaterally. CARDIOVASCULAR: Regular rate and rhythm. No M/G/R. ABDOMEN: Soft, TTP in RUQ. No palpable masses. Bowel sounds normoactive x 4 quad. Discharge Data Allergies Allergy/AdvReac Type Severity Reaction Status Date / Time meloxicam Allergy Unknown RASH Verified 05/13/22 14:34 Consultations 05/13/22 13:20 Consult Gastroenterology Stat 05/13/22 13:34 ED Decision to Admit Stat Procedures Performed Operation Date: 05/13/22 16:00 Actual Procedures p EGD Biopsy Cytology - Stuart Avila MD Ordered Studies Abdomen/Pelvis CT 05/13/22 11:[address] WITH IV CONTRAST CT DOSE: 327.51 mGy.cm HISTORY: RUQ pain, nausea TECHNIQUE: Multiaxial CT images of the abdomen and pelvis were performed following the use of intravenous contrast. A dose lowering technique was utilized adhering to the principles of ALARA. COMPARISON STUDY: Abdomen and pelvis CT 08/05/2014. FINDINGS: A few punctate calcified granulomas within the lung bases. No pneumoperitoneum. No pneumatosis. No fractures identified. A stable 1.6 cm hypodense lesion within the periphery the right hepatic lobe. This is indeterminate but favors a hemangioma given the long-term stability. The spleen is mildly enlarged measuring 14 cm in length. This is similar to the prior study. Normal adrenal glands and pancreas. There is a 3.6 cm cyst within the upper pole of the left kidney. There are few additional bilateral renal hypodense lesions which are difficult to characterize due to their small size but also favors cysts. There is a new 1 cm lesion within the right kidney on image 166 which does not represent a simple cyst and could represent a solid renal mass. No hydronephrosis. No retroperitoneal lymphadenopathy. Mild calcified plaque within the normal caliber no pelvic lymphadenopathy. The bladder is unremarkable. The prostate gland is mildly enlarged. No evidence for a bowel obstruction. A few colonic diverticula. No evidence for acute diverticulitis. Postoperative changes consistent with prior right hemicolectomy. Diffuse gastric wall thickening. There is inflammatory change with soft tissue density/phlegmon within the gastrohepatic region abutting the lesser curvature of the stomach. This is best seen on images 81 through 83. Dominant extraluminal phlegmon/soft tissue density in image 83 measures 2.9 cm. This could be due to a contained perforation in the setting of a gastric ulcer and/or a gastric mass. Follow-up endoscopy recommended for further evaluation. Tiny fat-containing umbilical hernia. IMPRESSION: 1. Diffuse gastric wall thickening. There is inflammatory change with soft tissue density/phlegmon within the gastrohepatic region abutting the lesser curvature of the stomach as described above. This could be due to a contained perforation in the setting of a gastric ulcer and/or a gastric mass. Follow-up endoscopy recommended for further evaluation. 2. There is a new 1 cm lesion within the right kidney which is concerning for solid renal mass. Follow-up nonemergent dedicated renal MRI recommended to evaluate for possible renal cell carcinoma. ACT 112: Positive. There are findings on this exam that require communication between the performing entity and the patient following Patient Test Result Information Act ([place] Act 112) guidelines. Electronically signed by: Shan Sanchez M.D. 05/13/2022 12:34 PM Hospital Course (1) Abdominal pain: 56 yo male with abdominal pain who has abnormal CT findings with gastric wall thickening c/f contained perforation d/t gastric ulcer and/or mass - Full admit to med/surg - Dr. Avila on consult for planned endoscopy today (05/13) - Maintain NPO status - Continue PPI drip as ordered by ED, but can likely be converted to Protonix 40mg IV BID vs PO tomorrow at rounding provider's discretion - Pain control ordered with IV APAP 1g q8h prn as first line, followed by Morphine 2mg IV q3h for mod pain, and 4mg IV q3h prn severe pain - He is s/p EGD with findings of duodenal polyp s/p biopsy which will be sent for pathology, although suspected to be malignant - He can consume clear liquid diet today and advance to regular diet tomorrow - Patient has requested discharge and f/u with pcp to arrange for referrals as warranted - Would advise cautious use of NSAIDs and to discontinue use of breakthrough methylprednisolone - Will increase his Protonix to 40mg BID upon discharge (2) Renal mass: Acute - Incidentally found on today's CT A/P - Will order dedicated renal MRI for further characterization given concern for solid renal mass - Patient has elected to be discharge and have this arranged as an outpatient, PCP is aware and will order (3) Immunodeficiency disorder: - In setting of chronic steroid + biologic use for RA (4) GERD (gastroesophageal reflux disease): - Chronic/stable - On Protonix at home and Pepcid - Continue Pepcid and increase Protonix to 40mg BID (5) Rheumatoid arthritis: - Can resume biologic - Again, cautious use of NSAIDs and would avoid breakthrough Methylprednisolone q3 days Plan Patient has requested to be discharged back home and follow up closely with his PCP for necessary referrals and MRI for his incidental renal lesion finding. I have directly connected with his PCP (Dr. Comer) who will see him Monday to expedite these arrangements. He is medically stable for discharge. Plan d/w Dr. Langley who has also seen and evaluated this patient and agrees with aforementioned. Total Time Total Time Spent Total Time Spent (In Minutes): <30 minutes Discharge Plan Discharge Items Patient Disposition: Home - Self-Care Reason For Visit: ABDOMINAL PAIN Discharge Diagnosis: polyp in duodenum incidental finding of R kidney lesion Activity: Resume your previous activity Non-emergency contact: Primary Care Provider Call non-emergency contact if: you have any medication questions and your symptoms worsen Follow-up/Referrals: Wally Comer, [Primary Care Provider] - Diet: Clear liquid Addtl Attending Provider Instructions: You underwent an endoscopy today that revealed a large polyp in the duodenum. This has been biopsied and you will be contacted with results. - Please consume a clear liquid diet today and then can advance to regular diet as tolerated tomorrow - Contact Dr. Comer's office on Monday, he will see you in follow up and assist in making any necessary referrals as well as scheduling the MRI of your R kidney to further characterize the lesion that was visualized on today's CT. - If any needs should arise between now and Monday, please contact Dr. Comer directly. - Would recommend avoiding the NSAIDs and the breakthrough Methylprednisolone. - Continue biologic. - Will increase Protonix to twice a day. New Rx has been sent to pharmacy. - In the event of a medical emergency, call 911 or return to ER immediately. Pending Studies at Discharge: Yes Studies:: pathology from biopsy of duodenal polyp Stand-Alone Forms: My [facility], Smoking Cessation Medications and DC Order Prescriptions: Continued Acetaminophen (Tylenol) 500 MG tablet 500 mg PO PRN Qty: 0 CELECOXIB (CeleBREX) 200 MG capsule 200 mg PO BID Qty: 0 CYCLOSPORINE (OPHTH) (RESTASIS) 0.05 % EMU 1 drp OPB BID Qty: 0 FAMOTIDINE (PEPCID) 20 MG tablet 20 mg PO DAILY PRN Qty: 0 Fish Oil (OMEGA-3) oil 1 cap PO BID Qty: 0 Hydrocodone/Acetaminophen 7.5MG/500MG (Lortab 7.5MG/500MG) tablet 1 tab PO DAILY PRN Qty: 0 Patient Comments: PRN PAIN MULTIPLE VITAMIN (MULTIVITAMIN) 1 TAB tablet 1 tab PO DAILY Qty: 0 Methylprednisolone (Medrol) 4 MG tablet 4 mg PO PRN/UD Qty: 0 Changed PANTOPRAZOLE SODIUM (PROTONIX) 40 MG tablet 40 mg PO BID Qty: 30 0RF Discharge Orders: Discharge Order (Routine); Ordered 05/13/22 Ordered By: Tiffanie Woods Admission Data Admit Date/Time: 05/13/22 13:41 Attending Provider: Eliud Langley Admit Provider: Eliud Langley Primary Care Provider: Wally Comer Other Providers: Stuart Avila ; Eliud Langley Other Interventions: Discharge Summary Assessment (RN) Last Done: 05/13/22 17:56 Supervising Physician Co-Signing Physician Notes Patient seen and examined, chart reviewed, case discussed with Tiffanie Woods PA-C and I agree with the assessment and plan as above except as otherwise noted Labs and images reviewed See same-day H&P for admitting exam. Patient was admitted for concern of contained perforation versus malignancy and epigastric pain. Following EGD patient was found to have scattered mild inflammation of the stomach, and a single large sessile polyp with no bleeding in the second portion of the du odenum. No ulceration/perforation was appreciated. Following procedure given that no active bleed or ulceration was found patient requested discharge home rather than continued observation. He was hemodynamically stable. No concerns requiring ongoing monitoring from GI standpoint on review, PPI increased to twice daily and patient was discharged home as noted above. We will have outpatient follow-up, and will follow for pathology results of biopsy. Patient was aware he has a new renal mass which will require follow-up MRI. Patient will prefer outpatient follow-up with outpatient MRI which is reasonable. Patient's PCP was contacted by [facility] prior to discharge for facilitated follow-up appointment within 1 week. Coding Level of Care Code 71580 IN/OBS DISCH 30 MIN/LESS Diagnoses Abdominal pain R10.9 Renal mass N28.89 Immunodeficiency disorder D84.9 GERD (gastroesophageal reflux disease) K21.9 Rheumatoid arthritis M06.9
--- NOTE | 2022-05-13 17:43 | Communication Note ---
Date of Service: May 13, 2022 By CMS guidelines, a determination that the admission or continued stay is not medically necessary has been made by a member of the UR committee and a phys ician for this hospital stay, therefore a Code 44 will be completed and the Inpatient admission will be changed to outpatient.
--- NOTE | 2022-05-14 02:36 | Electrocardiogram Report ---
Test Reason : Blood Pressure : / mmHG Vent. Rate : 079 BPM Atrial Rate : 079 BPM P-R Int : 152 ms QRS Dur : 092 ms QT Int : 378 ms P-R-T Axes : 058 031 046 degrees QTc Int : 433 ms Normal sinus rhythm Normal ECG When compared with ECG of 07-APR-2021 08:21, No significant change was found Confirmed by Isacc Negro ([id number]) on 05/14/2022 2:36:20 AM Referred By: REFERRED SELF Confirmed By:Isacc Negro
== END 2022-05-13 18:27 | disposition home or self-care (01) ==
LOC: ED 10:01 → 3N 13:41 → INTOOBSV 13:41 → 3N 14:59

== ENCOUNTER 2022-12-27 11:00 | Observation (INO) ==
--- NOTE | 2022-12-23 09:32 | Anesthesiology Consultation ---
Date of Service December 23, 2022 Assessment & Plan (1) Encounter for pre-operative examination: Plan - I called patient and he states that today's WBC and neutrophil count are stable for him, notes neutrophils are in fact improved. He denies currently receiving chemotherapy. Case discussed in detail with Dr. Verduzco who advised patient is acceptable to proceed with planned surgery and does not require additional testing or evaluation prior to surgery from his standpoint. - Per assistant therapy aide on 12/23/2022: No known infectious disease contacts, current infectious disease symptoms in past 10 days or COVID positive test result in the past 90 days. Chart Review Chart Review: Acceptable Risk for Surgery and Patient NOT seen in Pre Admission Testing History Surgery Operation Date: 12/27/22 12:30 Proposed Procedures p Laparoscopic Cholecystectomy, Liver Biopsy, Surgery as Needed - Amrik Sanford DO Height/Weight Height: 5 ft 9 in Weight: 72.575 kg Allergies Allergy/AdvReac Type Severity Reaction Status Date / Time meloxicam Allergy Unknown RASH Verified 12/23/22 08:32 Medications Home Medications Medication Instructions Recorded Confirmed Last Taken celecoxib 100 mg capsule (Celebrex) 100 mg PO DAILY 10/26/22 12/23/22 Unknown famotidine 40 mg tablet (Pepcid) 40 mg PO DAILY 10/26/22 12/23/22 Unknown hydrocodone 7.5 mg-acetaminophen 1 tab PO BID PRN Pain 10/26/22 12/23/22 Unknown 325 mg tablet methylprednisolone 4 mg tablet 4 mg PO .COMPLEX 10/26/22 12/23/22 Unknown (Medrol) pantoprazole 40 mg tablet,delayed 40 mg PO DAILY 10/26/22 12/23/22 Unknown release (Protonix) sumatriptan succinate 4 mg/0.5 mL 4 mg subcut ONCE PRN migraine 10/26/22 12/23/22 Unknown subcutaneous pen injector (Imitrex headache STATdose Pen) upadacitinib 15 mg tablet,extended 15 mg PO DAILY 10/26/22 12/23/22 Unknown release 24 hr (Rinvoq) ondansetron HCl 4 mg tablet 4 mg PO Q6H PRN Nausea 12/23/22 12/23/22 Unknown Past Medical History Medical History (Updated 12/23/22 @ 09:29 by Isela Morley PA-C) CVID (common variable immunodeficiency) Dr. Flores [facility] Feltys syndrome Gallbladder sludge Gastric mass GERD (gastroesophageal reflux disease) Incisional hernia Myelodysplastic syndrome Neutropenia patient states he typically runs 2 or just below 2 WBC Renal cell carcinoma follows with PSH, pt reports upcoming additional testing/biopsy with this upcoming procedure Rheumatoid arthritis Past Family History Family History Grandmother Lung cancer Grandfather Lung cancer Father Diabetes Past Surgical History Surgical History H/O colonoscopy H/O hand surgery History of esophagogastroduodenoscopy (EGD) History of herniorrhaphy History of partial colectomy S/P left rotator cuff repair Social History Smoking Status: Former smoker Smoking cigarettes per day: 20 pack/yr history Do You Dip or Chew Tobacco: No Hx Alcohol Use: No alcohol intake frequency: holidays/special occasions only Hx Substance Use: No substance use type: does not use Lab Results Anesthesia Preop Results Results Anesthesia Widget: WBC 1.98 K/ul (4.8-10.8) L 12/23/22 Hgb 11.8 g/dl (14.0-18.0) L 12/23/22 Hct 35.4 % (42.0-52.0) L 12/23/22 Plt 283 K/uL (130-400) 12/23/22 Na 136 mmol/L (136-145) 12/23/22 K 4.3 mmol/L (3.5-5.1) 12/23/22 Cl 98 mmol/L (98-107) 12/23/22 CO2 29 mmol/L (21-32) 12/23/22 BUN 17 mg/dl (6-23) 12/23/22 Creat 1.02 mg/dl (0.6-1.4) 12/23/22 Glucose Level 142 mg/dl (70-99(Fasting)) H 12/23/22 Testing Electrocardiogram Date: 05/13/22 NSR, rate 79 bpm Chest X-Ray Date: 05/16/22 No acute process Other Testing Abdomen CT 12/01/22 1. Interval development of new rim-enhancing nodules in the right subdiaphragmatic region. Findings are concerning for metastatic disease this patient with likely primary renal neoplasm. 2. Soft tissue nodule in the region of the lesser curvature of the stomach appears slightly enlarged from prior exam. Although this may represent chronic findings of contained perforated ulcer, findings are concerning for possible malignancy. 3. Interval stability of right lower pole renal lesion again felt to likely represent neoplasm such as renal cell carcinoma. 4. Ill-defined low density in the right liver previously demonstrated imaging characteristics of a hemangioma. Abdomen pelvis 08/02/22 1. Unchanged enhancing 1 cm lesion of the inferior pole of the right kidney suggestive of renal cell carcinoma. 2. No lymphadenopathy or evidence of metastatic disease. 3. Unchanged irregular soft tissue thickening with inflammatory stranding involving the lesser curvature of the stomach and adjacent gastrohepatic tissues which is again suggestive of a diverticulum, exophytic lesion or contained perforation. Correlation with endoscopy is suggested if not already obtained. 4. Splenomegaly. Chest CT 08/02/22 1. Paramediastinal consolidation in the left upper lobe is likely on an infectious/inflammatory basis. Clinical correlation will be required. 2. There is a 9 mm subsolid nodule in the left upper lobe which is new from 03/23/2015. This may also be inflammatory. A three-month follow-up chest CT is recommended to document resolution of these findings. 3. Additional subcentimeter pulmonary nodules are unchanged from 2016 and of low suspicion. 4. Additional findings as above Abdomen MRI 06/09/22 1. Confirmation of a 1 cm enhancing lesion within the lower pole of the right kidney. This is consistent with a renal cell carcinoma until proven otherwise. Urology consultation recommended. 2. Gastric wall thickening and the adjacent inflammatory change at the gastrohepatic ligament appears to have slightly improved. 3 month abdomen and pelvis CT follow-up recommended to ensure complete resolution. 3. Mild splenomegaly. 4. Stable hepatic hemangioma measuring 1.7 cm.
[~2022-12-27 11:00] MED LIST: HYDROCORTISONE SOD SUCCINATE 100 MG/2 ML VIAL IV SCH; LR 15ML/HR IV SCH; ceFAZolin 2000MG 2,000 MG/15 ML SYR IV SCH
[2022-12-27] MEDS ORDERED: ONDANSETRON INJ 2 MG/ML 2 ML VIAL IV PRN ×2 (11:30→16:47)
[2022-12-27] MEDS ORDERED: ePHEDrine sulfate 50 MG/ML AMP IV PRN (11:30)
[2022-12-27] MEDS ORDERED: ATROPINE SULFATE 0.1 MG/ML 10ML SYR IV PRN (11:30)
[2022-12-27] MEDS ORDERED: MIDAZOLAM HCL 1 MG/ML 2ML VIAL ONE (12:42)
[2022-12-27] MEDS ORDERED: fentaNYL citrate PF 100 MCG/2 ML VIAL ONE (12:43)
[2022-12-27] MEDS ORDERED: ROCURONIUM BROMIDE 10 MG/ML 5 ML VIAL IV ONE ×2 (12:44)
[2022-12-27] MEDS ORDERED: PROPOFOL IV EMULSION 10 MG/ML 20 ML VIAL IV ONE (12:45)
[2022-12-27] MEDS ORDERED: ONDANSETRON INJ 2 MG/ML 2 ML VIAL ONE (12:46)
[2022-12-27] MEDS ORDERED: LIDOCAINE 2% 2 ML VIAL/AMP(20MG/ML) INFIL ONE (12:46)
[2022-12-27] MEDS ORDERED: DEXAMETHASONE SOD INJ 4 MG/ML VIAL ONE (12:46)
--- NOTE | 2022-12-27 12:47 | History & Physical Report ---
Date of Service December 27, 2022 Assessment & Plan (1) Abdominal pain: Plan: Unclear exactly what is going on. I reviewed him his imaging with Dr. Dexter. There is certainly some liver lesions as well as some upper abdominal abnormalities. With his symptoms I think the best chance of trying to help him to get a definitive diagnosis would be to go ahead and proceed with a laparoscopic cholecystectomy and biopsy any abnormalities of the liver and upper abdomen. I may or may not perform an intraoperative endoscopy as well. We discussed potential risks which include bleeding, infection, bile duct leak or bile duct injury, injury to other organs such as bowel liver vasculature etc., DVT, PE, [place], CVA etc. Following our discussion I answered all of his questions. We will plan on repairing his periumbilical incisional hernia at the same time. We will proceed today with laparoscopic cholecystectomy umbilical/incisional hernia repair, possible liver biopsy possible intraoperative EGD. He agrees with the plan. (2) Abnormal CT scan: (3) Incisional hernia: (4) Gallbladder sludge: (5) Gastric mass: (6) Renal mass: (7) Myelodysplastic syndrome: History of Present Illness Primary Care Provider: Wally Comer DO Patient since I seen him last in the office the injury has had progression of his symptoms. He now gets right upper quadrant postprandial pain after he eats at least 3-4 times a week. He has lost about 10 pounds. He is also had some repeat imaging which continues to show some abnormalities in the upper abdomen near the stomach under the diaphragm as well as in the right lobe of the liver. Allergies Allergy/AdvReac Type Severity Reaction Status Date / Time meloxicam Allergy Unknown RASH Verified 12/27/22 11:21 Home Medications Medication Instructions Recorded Confirmed Type celecoxib 100 mg capsule (Celebrex) 100 mg PO DAILY 10/26/22 12/27/22 History famotidine 40 mg tablet (Pepcid) 40 mg PO DAILY 10/26/22 12/27/22 History hydrocodone 7.5 mg-acetaminophen 1 tab PO BID PRN Pain 10/26/22 12/27/22 History 325 mg tablet methylprednisolone 4 mg tablet 4 mg PO .COMPLEX 10/26/22 12/27/22 History (Medrol) pantoprazole 40 mg tablet,delayed 40 mg PO DAILY 10/26/22 12/27/22 History release (Protonix) sumatriptan succinate 4 mg/0.5 mL 4 mg subcut ONCE PRN migraine 10/26/22 12/27/22 History subcutaneous pen injector (Imitrex headache STATdose Pen) upadacitinib 15 mg tablet,extended 15 mg PO DAILY 10/26/22 12/27/22 History release 24 hr (Rinvoq) ondansetron HCl 4 mg tablet 4 mg PO Q6H PRN Nausea 12/23/22 12/27/22 History loperamide 2 mg capsule 2 mg PO Q6H PRN Diarrhea 12/27/22 12/27/22 History Past Med/Surg History Medical History CVID (common variable immunodeficiency) Dr. Sandra Wills Feltys syndrome Gallbladder sludge Gastric mass GERD (gastroesophageal reflux disease) Incisional hernia Myelodysplastic syndrome Neutropenia patient states he typically runs 2 or just below 2 WBC Renal cell carcinoma follows with PSH, pt reports upcoming additional testing/biopsy with this upcoming procedure Rheumatoid arthritis Surgical History H/O colonoscopy H/O hand surgery History of esophagogastroduodenoscopy (EGD) History of herniorrhaphy History of partial colectomy S/P left rotator cuff repair Family History Grandmother Lung cancer Grandfather Lung cancer Father Diabetes Social History Smoking Status: Former smoker Tobacco Type: Cigarettes Cigarettes Per Day: 20 pack/yr history; Second Hand Exposure: No; Do You Dip or Chew Tobacco: No; Tobacco Cessation Education Requested by Patient: No Hx Alcohol Use: No Hx Substance Use: No Preferred Language: Somali Communication Ability: Effective Marketing Performance Analyst Required: No Beliefs That Will Affect Care: None marital status: Current Living Situation: Spouse current occupational status: retired and disabled Other Information That Helps Us Care for You: No Feels Safe at Home: Yes Safety Concerns: Feels Safe At This Time Diet: regular during the past year weight has: remained stable Assistive Devices: Cane and Glasses Assistive Devices Comment: prn cane only on "big walks" Review of Systems All systems reviewed & are unremarkable except as noted in HPI & below Physical Exam Constitutional: WD/WN, vitals as above no acute distress and not ill appearing Eyes: PERRL, conjunctivae normal, anicteric sclerae EOM intact bilaterally ENMT: external ear and nose normal, oropharynx normal Ears: no hearing impairment Neck: trachea midline, no thyromegaly Respiratory: normal respiratory effort; no respiratory distress and does not use accessory muscles Cardiovascular: Rate/Rhythm: regular rate and regular rhythm Gastrointestinal (Abdomen): normal bowel sounds, soft, nontender, no hepatosplenomegaly Small periumbilical incisional hernia. Unchanged from prior visit Skin: no rashes, warm and dry Psychiatric: Orientation: alert, oriented x 3 and cooperative Results & Data Vital Signs (Past 12 Hours) Vital Signs Temp Pulse Resp BP Pulse Ox O2 Del Method 12/27/22 11:18 37.2 C 101 H 20 138/97 98 Room Air
[2022-12-27] MEDS ORDERED: BUPIVACAINE/EPINEPHRINE 0.5% MPF 1:200,000 30 ML VIAL ONE (12:50)
[2022-12-27] MEDS ORDERED: HYDROmorphone INJ 2 MG/ML SYR/VIAL ONE (13:37)
[2022-12-27] MEDS ORDERED: KETOROLAC 30 MG/ML VIAL ONE (14:34)
[2022-12-27] MEDS ORDERED: GLYCOPYRROLATE 0.2 MG/ML VIAL ONE (14:34)
[2022-12-27] MEDS ORDERED: NEOSTIGMINE METHYLSULFATE 1 MG/ML 10ML VIAL ONE (14:34)
--- NOTE | 2022-12-27 15:04 | Operative Report ---
PG Post Operative Report Pre & Post Diagnosis Operation Date: 12/27/22 12:30 Pre-Op Diagnosis: Abdominal Pain Incisional Hernia Post-Op Diagnosis: Abdominal Pain Incisional Hernia Hepatic Abscess Adhesions Gastric Polyp Zenker's Diverticulum hiatal hernia I identified the patient and participated in the time-out.: Yes Procedure Operation Date: 12/27/22 12:30 Actual Procedures p Laparoscopic Cholecystectomy, Peritoneal Biopsy, Drainage Hepatitic Abscess, Extensive Enterolysis - DO niranjan Garcia Intraoperative Esophagogastroduodenoscopy with Gastric Biopsy - DO niranjan Garcia Repair Incisional Hernia - Amrik Sanford DO Surgeon Amrik Sanford DO [employer] jazmine gómez Estimated Blood Loss 10 Findings Consistent with Post-Op Diagnosis Specimens 1. gallbladder 2. hepatic abcess fluid for gram stain, culture, sensitivity and cytology 3. peritoneal bx 4. gastric bx's Description of Procedure After informed consent was obtained the patient was taken to the operating room and placed in supine position. After successful intubation the abdomen was shaved and sterilely prepped and draped in usual fashion. I began with an infraumbilical curvilinear incision. This was carried down through the soft tissue using cautery. I used a Milla clamp to come around the superior aspect of the umbilicus and detached the umbilical stalk. This exposed an approximately 3 cm hernia. 0 Vicryl stay sutures were placed on either side. A finger was used to penetrate the hernia sac and a finger sweep performed. A 12 mm Brian trocar was inserted through the hernia defect and the abdomen was insufflated to 18 mmHg. The laparoscope was inserted and the abdomen examined 360 degrees. There was a lot of inflammatory response in the right upper quadrant with a lot of adhesions from the liver to the anterior abdominal wall. There is no evidence of anything that would appear to be metastatic disease. I placed a subxiphoid 5 mm port and 2 right upper quadrant 5 mm ports. We were able to grasp the gallbladder and elevate it superiorly and laterally. A [place] dissector was used to take down adhesions around the neck of the gallbladder. The cystic duct was delineated and skeletonized. It was Clipped twice proximally and once distally using the laparoscopic scissors. In similar fashion the cystic artery was identified skeletonized clipped and divided. The gallbladder was removed from the gallbladder fossa using cautery. It was placed into an Endo Catch bag and removed from the camera port site. Attention then turned to the right hepatic lobe. I used sharp scissor lysis as well as cautery and eventually harmonic scalpel to take down these adhesions to the anterior abdominal wall. Closer to the diaphragm there was a very hard firm cystic type mass attaching the liver to the abdominal wall. Initially I tried to biopsy it with a Mohit-Cut needle. Immediately after doing this it released pus into the right upper quadrant. I then used the harmonic scalpel to the roof of what turned out to be a hepatic abscess. A sample of the fluid was taken and sent for Gram stain culture sensitivity as well as cytology. I thoroughly irrigated all purulent fluid. I also took a portion of the cyst wall and sent it to pathology. There was no intraparenchymal mass to biopsy. The diaphragm itself looked okay. After taking down all the adhesions I thoroughly irrigated the right upper quadrant with several liters of irrigant. There was adequate hemostasis and no evidence of any bile leak. I did look under the left lobe of the liver. There was a small hiatal hernia. The stomach itself looked normal. There was a small nodule right near the head of the pancreas however it was right near a pulsating celiac artery and therefore risk benefit did not warrant attempting to biopsy this. I removed all of the trocars. I closed the hernia defect using #1 Ethibond in simple interrupted fashion. The umbilical stalk was reattached using 0 Vicryl. The wound was thoroughly irrigated and closed in 2 layers using 3-0 Vicryl for deep layers and 4-0 Monocryl for skin. Marcaine w ith epinephrine was injected around it and Dermabond glue used as a dressing. The remaining incisions were also closed using 4-0 Monocryl Marcaine and Dermabond glue. Next I performed an intraoperative EGD. The gastroscope was lubricated and inserted into the oropharynx and the proximal esophagus without difficulty. In the proximal esophagus there was a diverticulum consistent with a Zenker's diverticulum. There was no debris trapped within it. I passed the scope down into the stomach through the pylorus and the first second third portions of the duodenum. Clips in the duodenum could be seen from his prior polypectomy. I withdrew the scope back in the distal stomach and retroflexed to evaluate the proximal stomach. The entire lining of the stomach had polyps. Cold forcep was used to take multiple biopsies of these polyps. No other gross abnormalities were seen. Stomach was decompressed and scope withdrawn. There was also a small hiatal hernia seen on endoscopy. The scope was removed. The patient was awakened extubated and transferred to recovery in stable condition. My nurse practitioner was present throughout the case and assisted in all aspects including exposure for the intra-abdominal portion wound closure and dressing placement. I attest to the content of the Intraoperative Record and any orders documented therein. Any exceptions are noted below.
[2022-12-27] MEDS: HYDROmorphone INJ 2 MG/ML SYR/VIAL IV PRN ×4 (15:07→15:22)
--- NOTE | 2022-12-27 16:41 | Anesthesiology Progress Note ---
Date of Service December 27, 2022 Anesthesia Post Procedure Vital Signs Vital Signs: Temp Pulse Resp BP BP Pulse Ox O2 Del Method 12/27/22 16:30 36.4 C L 95 H 18 161/74 H 95 Room Air 12/27/22 16:15 90 18 152/88 H 97 Room Air 12/27/22 16:00 36.4 C L 91 H 20 149/87 H 96 Room Air 12/27/22 15:50 97 H 18 147/87 H 97 Room Air 12/27/22 15:40 102 H 20 146/86 H 96 Room Air 12/27/22 15:30 90 20 137/70 96 Room Air 12/27/22 15:20 75 18 141/74 H 96 Room Air 12/27/22 15:10 84 20 152/71 H 98 Room Air 12/27/22 15:00 36.8 C 80 20 164/79 H 98 Oxymask 12/27/22 11:18 37.2 C 101 H 20 138/97 98 Room Air O2 Flow Rate 12/27/22 16:30 12/27/22 16:15 12/27/22 16:00 12/27/22 15:50 12/27/22 15:40 12/27/22 15:30 12/27/22 15:20 12/27/22 15:10 12/27/22 15:00 4 12/27/22 11:18 Pain Intensity Right Upper Abdomen: Pain Intensity: 4 Abdomen: Pain Intensity: 4 Transfer of Care Handoff Completed per policy Notes Mental Status: alert / awake / arousable and participated in evaluation Patient Amnestic to Procedure: Yes Nausea / Vomiting: adequately controlled Pain: adequately controlled Airway Patency, RR, SpO2: stable & adequate BP & HR: stable & adequate Hydration State: stable & adequate Anesthetic Complications: no major complications apparent
[2022-12-27] MEDS ORDERED: MoRPHine SULFATE 2 MG/ML CARP IV PRN (16:47)
[2022-12-27] MEDS ORDERED: MoRPHine SULFATE 4 MG/ML 1 ML CARP\\VIAL IV PRN (16:47)
[2022-12-27] MEDS ORDERED: oxyCODONE/ACETAMINOPHEN 5mg/325mg TAB PO PRN (16:47)
[2022-12-27] MEDS ORDERED: LACTATED RINGER'S 1,000 ML IV SCH (16:47)
[2022-12-27] MEDS ORDERED: ACETAMINOPHEN 325 MG TAB PO PRN (16:47)
[2022-12-27] MEDS: oxyCODONE/ACETAMINOPHEN 5mg/325mg TAB PO PRN ×2 (17:13→21:33)
[2022-12-27] MEDS ORDERED: PIPER/TAZO 4.5g in D5W MINI-B 100 ML IV ONE (17:15)
[2022-12-28] MEDS: PIPERACILLIN/TAZOBACTAM 4.5 GM in DEXTROSE 5% MINI-B 100 ML IV SCH ×2 (00:19→07:20)
[2022-12-28] MEDS: oxyCODONE/ACETAMINOPHEN 5mg/325mg TAB PO PRN (01:47)
[2022-12-28 06:48] LABS: Hematocrit (blood only) 30.1 % (42.0-52.0); Hemoglobin 9.7 g/dl (14.0-18.0); Mean Corpuscular Hemoglobin 27.6 pg (25.0-34.0); Mean Corpuscular Hgb Conc 32.2 g/dL (32.0-36.0); Mean Corpuscular Volume 85.5 fL (80.0-100.0); Platelet Count 270 K/uL (130-400); RDW Coefficient of Variation 12.6 % (11.5-14.5); Red Blood Count 3.52 M/uL (4.70-6.10); White Blood Count 2.64 K/ul (4.8-10.8)
[2022-12-28 07:20] LABS: Albumin Globulin Ratio 1.4 (0.9-2); Albumin Level 3.6 gm/dl (3.4-5.0); BUN Creatinine Ratio 17.4 (10-20); Bilirubin,Total 0.5 mg/dl (0.2-1.0); Calcium 8.7 mg/dl (8.6-10.3); Creatinine Clr Calc Pharmacy 69.2 ml/min; Est GFR (African American) 80.3 ml/min; Est GFR (Non-African American) 69.3 ml/min; Globulin 2.6 gm/dl (2.5-4.0); Potassium 4.3 mmol/L (3.5-5.1); Total Protein 6.2 gm/dl (6.0-8.3)
[2022-12-28 07:22] LABS: Immature Granulocytes # (auto) 0.15 K/uL (0.01-0.20); Immature Granulocytes % (auto) 5.7 %; Lymphocytes # (auto) 0.68 K/uL (1.20-3.40); Lymphocytes % (auto) 25.8 %; Monocytes # (auto) 0.64 K/uL (0.11-0.59); Monocytes % (auto) 24.2 %; Neutrophils # (auto) 1.17 K/uL (1.40-6.50); Neutrophils % (auto) 44.3 %; Ovalocytes 1+; Tear Drop Cells 1+
--- NOTE | 2022-12-28 08:33 | Surgery Progress Note ---
Date of Service December 28, 2022 Assessment & Plan (1) Hx laparoscopic cholecystectomy: Plan: Doing well. We discussed my intraoperative findings. We will send him home a couple weeks of antibiotics. Signs and symptoms to watch for. I would like to see him in a week to 2 weeks for follow-up Admission and Anticipated Discharge Date Admission Date: December 27, 2022 Subjective Patient seen. He is feeling much better than he was preoperatively. No complaints and he would like to go home Physical Exam Physical Exam: Alert. No acute distress Abdomen with expected incisional tenderness. Results & Data Vital Signs (Past 12 Hours) Vital Signs Temp Pulse Resp BP Pulse Ox O2 Del Method 12/28/22 07:08 36.5 C 76 18 121/75 99 Room Air 12/28/22 01:48 36.6 C 70 16 133/80 99 Room Air 12/27/22 23:09 37.1 C 74 16 113/70 98 Room Air PG Care Time/CCT Total # of Minutes Spent Total Time Spent with Patient: Total time spent is greater than 50% in coordination of care (as documented) at patient's floor/unit and/or counseling patient: Coding Level of Care Code 13892 Post Operative Follow-Up Diagnoses Hx laparoscopic cholecystectomy Z90.49
[2022-12-28] MEDS ORDERED: FAMOTIDINE 40 MG TABLET PO SCH (09:00)
[2022-12-28] MEDS ORDERED: PANTOprazole 40 MG TAB PO SCH (09:00)
--- NOTE | 2023-01-04 11:06 | Discharge Summary ---
Date of Service December 28, 2022 Admission HPI Per Admitting Provider Patient since I seen him last in the office the injury has had progression of his symptoms. He now gets right upper quadrant postprandial pain after he eats at least 3-4 times a week. He has lost about 10 pounds. He is also had some repeat imaging which continues to show some abnormalities in the upper abdomen near the stomach under the diaphragm as well as in the right lobe of the liver. Principal Diagnosis Abdominal pain, Incisional hernia, hepatic abscess, adhesions, Gastric Polyp, Zenker's Diverticulum, Hiatal Hernia Discharge Data Allergies Allergy/AdvReac Type Severity Reaction Status Date / Time meloxicam Allergy Unknown RASH Verified 12/27/22 11:21 Procedures Performed Operation Date: 12/27/22 12:30 Actual Procedures p Laparoscopic Cholecystectomy, Peritoneal Biopsy, Drainage Hepatitic Abscess, Extensive Enterolysis - Amrik Sanford DO s Intraoperative Esophagogastroduodenoscopy with Gastric Biopsy - DO niranjan Garcia Repair Incisional Hernia - Amrik Sanford DO Hospital Course (1) Hx laparoscopic cholecystectomy: The patient underwent an elective Laparoscopic Cholecystectomy, Peritoneal Biop sy, Drainage Hepatitic Abscess, Extensive Enterolysis, Intraoperative Esophagogastroduodenoscopy with Gastric Biopsy, Repair Incisional Hernia, on 12/27/[address] Sanford. He was admitted over night for observation and given IV antibiotics. He was tolerating a diet, VSS, Labs WNL, and was discharged the following day on 12/28/22 in stable condition. He was given a prescription for oral antibiotics, and verbalized understanding of return precautions. He was to follow up in the office with Dr. Sanford in two weeks. (2) Abdominal pain: (3) Incisional hernia: Total Time Total Time Spent Total Time Spent (In Minutes): 20 Discharge Plan Discharge Items Patient Disposition: Home - Self-Care Reason For Visit: POST OPERATIVE LAP CHOLECYSTECTOMY, LIVER ABSCESS Discharge Diagnosis: Laparoscopic Cholecystectomy, Liver Biopsy, s Esophagogastroduodenoscopy s Repair Incisional Hernia s Gastric Biopsy Activity: As commented below Lifting: No more than 10 pounds Bathing Comment: you can shower, no bath or pools for 2 weeks Exercise/Sports: Wait until after follow-up appointment Non-emergency contact: Surgeon Call non-emergency contact if: you have any medication questions, your symptoms worsen, your pain is not controlled, your pain is concerning for you, your temperature is above 101.5, your wound has increased redness, your wound has increased drainage and your wound pain has increased Follow-up/Referrals: Amrik Sanford DO [Surgeon] - 01/17/23 1:00 pm (follow up in 2 weeks ) Wally Comer DO [Primary Care Provider] - Diet: Regular Addtl Attending Provider Instructions: You have surgical glue called dermabond on your surgical site incisions. You may shower with this on. This will tend to come off within a couple of weeks. Do not pick at it. Pending Studies at Discharge: Yes Studies:: surgical pathology Stand-Alone Forms: My [facility] Medications and DC Order Prescriptions: New amoxicillin-pot clavulanate 875-125 mg tablet 1 tab PO Q12H 21 Days Qty: 42 0RF Rx Instructions: Take one tab by mouth every hours for 21 days Continued pantoprazole [Protonix] 40 mg tablet,delayed release (DR/EC) 40 mg PO DAILY famotidine [Pepcid] 40 mg tablet 40 mg PO DAILY hydrocodone-acetaminophen 7.5-325 mg tablet 1 tab PO BID PRN (Reason: Pain) Rinvoq 15 mg tablet extended release 24 hr 15 mg PO DAILY celecoxib [Celebrex] 100 mg capsule 100 mg PO DAILY methylprednisolone [Medrol] 4 mg tablet 4 mg PO .COMPLEX Rx Instructions: 4 mg orally every third day; sumatriptan succinate [Imitrex STATdose Pen] 4 mg/0.5 mL pen injector 4 mg subcut ONCE PRN (Reason: migraine headache) ondansetron HCl 4 mg Tablet 4 mg PO Q6H PRN (Reason: Nausea) loperamide 2 mg Capsule 2 mg PO Q6H PRN (Reason: Diarrhea) Discharge Orders: Discharge Order (Routine); Ordered 12/28/22 Ordered By: Elsi Collins Admission Data Admit Date/Time: 12/27/22 14:55 Attending Provider: Amrik Sanford Admit Provider: Amrik Sanford Primary Care Provider: Wally Comer Other Interventions: Discharge Summary Assessment (RN) Last Done: 12/28/22 09:37 Coding Level of Care Code 32781 IN/OBS DISCH 30 MIN/LESS Diagnoses Hx laparoscopic cholecystectomy Z90.49 Abdominal pain R10.9 Incisional hernia K43.2
== END 2022-12-28 10:17 | disposition home or self-care (01) ==
LOC: ASU 11:00 → 3E 11:00